=== PATIENT | female | born 1990 | race American Indian/Alaskan Native ===

== ENCOUNTER 2022-01-26 17:11 | Inpatient (IN) | payer MEDICAID ==
[2022-01-26] MEDS ORDERED: SODIUM CHLORIDE 0.9% 1000 ML 1,000 ML IV ONE (22:19)
[2022-01-26] MEDS ORDERED: ONDANSETRON 4 MG/2 ML INJ IV ONE (22:19)
--- NOTE | 2022-01-26 22:42 | Emergency Department Report ---
<JEROME MILES - Last Filed: 01/27/22 07:12> ED Abdominal Pain HPI - General Chief Complaint: Abdominal Pain Stated Complaint: FOOD POISONING, STOMACH CRAMPS Time Seen by Provider: 01/26/22 19:55 Source: patient Mode of arrival: Ambulatory Limitations: No Limitations - History of Present Illness Initial Comments: Patient 31-year-old female who presents with for same symptoms with nausea vomiting diarrhea after eating ribs at cookout 6 days ago. Symptoms include nausea vomiting diarrhea. There is no fevers no chills no shortness of breath. Symptoms are exacerbated by p.o. intake. Symptoms are relieved by no thing tried. Both patients have identical symptoms. - Related Data Previous Rx's Medication Instructions Recorded Last Taken Type Hydrocortisone/Lidocaine/Aloe 1 each RC Q12H #1 kit 10/06/15 Unknown Rx [Lidocaine-Hc 3-2.5% Gel Kit] bisacodyL [Dulcolax] 5 mg PO DAILY PRN #30 tab 10/06/15 Unknown Rx Allergies Allergy/AdvReac Type Severity Reaction Status Date / Time No Known Allergies Allergy Verified 01/27/22 09:39 ED Review of Systems Constitutional: denies: chills, fever Eyes: denies: eye pain, eye discharge, vision change ENT: denies: ear pain, throat pain Respiratory: denies: cough, shortness of breath, wheezing Cardiovascular: denies: chest pain, palpitations Endocrine: no symptoms reported Gastrointestinal: abdominal pain, nausea, vomiting, diarrhea. denies: constipation, melena Genitourinary: denies: urgency, dysuria, discharge Musculoskeletal: denies: back pain, joint swelling, arthralgia Skin: denies: rash, lesions Neurological: denies: headache, weakness, paresthesias, vertigo Psychiatric: denies: anxiety, depression Hematological/Lymphatic: denies: easy bleeding, easy bruising ED Past Medical Hx - Social History Smoking Status: Never Smoker Substance Use Type: None - Medications Home Medications: Home Medications Medication Instructions Recorded Confirmed Last Taken Type Hydrocortisone/Lidocaine/Aloe 1 each RC Q12H #1 kit 10/06/15 Unknown Rx [Lidocaine-Hc 3-2.5% Gel Kit] bisacodyL [Dulcolax] 5 mg PO DAILY PRN #30 tab 10/06/15 Unknown Rx ED Physical Exam - General Limitations: No Limitations General appearance: alert, in no apparent distress - Head Head exam: Present: atraumatic, normocephalic - Eye Eye exam: Present: EOMI Pupils: Present: normal accommodation - ENT ENT exam: Present: normal exam - Neck Neck exam: Present: normal inspection, full ROM. Absent: tenderness, lymphadenopathy - Respiratory Respiratory exam: Present: normal lung sounds bilaterally. Absent: respiratory distress, wheezes - Cardiovascular Cardiovascular Exam: Present: regular rate, normal rhythm, normal heart sounds. Absent: systolic murmur, diastolic murmur, rubs, gallop - GI/Abdominal GI/Abdominal exam: Present: soft, normal bowel sounds. Absent: distended, tenderness, guarding, rebound, rigid, bruit, hernia - Rectal Rectal exam: Present: deferred - Extremities Exam Extremities exam: Present: normal inspection, full ROM, normal capillary refill. Absent: tenderness - Back Exam Back exam: Present: normal inspection, full ROM. Absent: CVA tenderness (R), CVA tenderness (L) - Neurological Exam Neurological exam: Present: alert, oriented X3, CN II-XII intact - Expanded Neurological Exam Expanded Patient oriented to: Present: person, place, time Speech: Present: fluid speech Motor strength exam: RUE: 5, LUE: 5, RLE: 5, LLE: 5 Best Eye Response (Erica): (4) open spontaneously Best Motor Response ([place]): (6) obeys commands Best Verbal Response ([place]): (5) oriented Erica Total: 15 - Psychiatric Psychiatric exam: Present: normal affect, normal mood - Skin Skin exam: Present: warm, dry, intact, normal color. Absent: rash ED Medical Decision Making - Lab Data Result diagrams: 01/26/22 22:55 01/27/22 04:37 - Medical Decision Making Patient care handoff to colleague will follow up and make appropriate disposition after CT scan. ED Disposition Clinical Impression: Acute kidney injury (MICHELE) with acute tubular necrosis (ATN), Acute kidney injury (nontraumatic) Disposition: 02 [facility]ORT TERM [facility]OSPITAL Condition: Stable Instructions: Abdominal Pain (ED) Referrals: JUAN BRANTLEY MD [Primary Care Provider] - 3-5 Days <HUMBERTO BURDICK - Last Filed: 01/27/22 10:23> ED Abdominal Pain HPI - History of Present Illness Initial Comments: 31-year-old female receiving has a complaining nausea and vomiting x6 days after a cookout. Patient states that she has lost 12 pounds total in the last 6 weeks. Patient denies any past medical history. Patient is alert and oriented x3. She has been was treated for the same symptom and discharge. Consulted with Dr. Zarate for admission her MICHELE. Patient has received 3 L of normal saline. BUN and creatinine remain elevated at 89 and 10.1 Abnormal Lab Results 01/26/22 01/26/22 01/27/22 22:55 22:55 01:56 WBC 6.3 RBC 5.37 H Hgb 15.6 H Hct 45.9 H MCV 86 MCH 29 MCHC 34 RDW 14.5 Plt Count 367 Add Manual Diff Complete Total Counted 100 Seg Neuts % (Manual) 60.0 Band Neutrophils % 3.0 Lymphocytes % (Manual) 20.0 Reactive Lymphs % (Man) 0 Monocytes % (Manual) 17.0 H Eosinophils % (Manual) 0 Basophils % (Manual) 0 Metamyelocytes % 0 Myelocytes % 0 Promyelocytes % 0 Blast Cells % 0 Nucleated RBC % Not Reportable Seg Neutrophils # Man 3.8 Band Neutrophils # 0.2 Lymphocytes # (Manual) 1.3 Abs React Lymphs (Man) 0.0 Monocytes # (Manual) 1.1 H Eosinophils # (Manual) 0.0 Basophils # (Manual) 0.0 Metamyelocytes # 0.0 Myelocytes # 0.0 Promyelocytes # 0.0 Blast Cells # 0.0 WBC Morphology Not Reportable Hypersegmented Neuts Not Reportable Hyposegmented Neuts Not Reportable Hypogranular Neuts Not Reportable Smudge Cells Not Reportable Toxic Granulation Not Reportable Toxic Vacuolation Not Reportable Dohle Bodies Not Reportable Pelger-Huet Anomaly Not Reportable Michael Rods Not Reportable Platelet Estimate Consistent w auto Clumped Platelets Not Reportable Plt Clumps, EDTA Not Reportable Large Platelets Not Reportable Giant Platelets Not Reportable Platelet Satelliting Not Reportable Plt Morphology Comment Not Reportable RBC Morphology Normal Dimorphic RBCs Not Reportable Polychromasia Not Reportable Hypochromasia Not Reportable Poikilocytosis Not Reportable Anisocytosis Not Reportable Microcytosis Not Reportable Macrocytosis Not Reportable Spherocytes Not Reportable Pappenheimer Bodies Not Reportable Sickle Cells Not Reportable Target Cells Not Reportable Tear Drop Cells Not Reportable Ovalocytes Not Reportable Helmet Cells Not Reportable [place] Bodies Not Reportable [place] Rings Not Reportable [place] Cells Not Reportable Bite Cells Not Reportable Crenated Cell Not Reportable Elliptocytes Not Reportable Acanthocytes (Spur) Not Reportable Rouleaux Not Reportable Hemoglobin C Crystals Not Reportable Schistocytes Not Reportable Malaria parasites Not Reportable Amando Bodies Not Reportable Hem Pathologist Commnt No Sodium 137 135 L Potassium 4.0 3.7 Chloride 90.6 L 95.4 L Carbon Dioxide 17 L 16 L Anion Gap 33 27 BUN 90 H 89 H Creatinine 11.2 H 10.1 H Estimated GFR 5 5 BUN/Creatinine Ratio 8 9 Glucose 71 72 Calcium 10.0 8.6 Total Bilirubin 0.60 AST 20 ALT 39 Alkaline Phosphatase 147 H Total Creatine Kinase Total Protein 8.7 H Albumin 5.0 Albumin/Globulin Ratio 1.4 HCG, Qual Urine Color Urine Turbidity Specific [place] (Man) Ur Protein (Man) Ur Ketones (Man) Ur Nitrite (Man) Ur Reducing Substances Urine Bilirubin (Man) Urine Ictotest Leukocyte Esterase (Man) Urine WBC (Auto) Urine RBC (Auto) U Epithel Cells (Auto) Urine Bacteria (Auto) Urine RBC (Manual) Urine Yeast (Budding) 01/27/22 01/27/22 01/27/22 04:37 04:37 05:45 WBC RBC Hgb Hct MCV MCH MCHC RDW Plt Count Add Manual Diff Total Counted Seg Neuts % (Manual) Band Neutrophils % Lymphocytes % (Manual) Reactive Lymphs % (Man) Monocytes % (Manual) Eosinophils % (Manual) Basophils % (Manual) Metamyelocytes % Myelocytes % Promyelocytes % Blast Cells % Nucleated RBC % Seg Neutrophils # Man Band Neutrophils # Lymphocytes # (Manual) Abs React Lymphs (Man) Monocytes # (Manual) Eosinophils # (Manual) Basophils # (Manual) Metamyelocytes # Myelocytes # Promyelocytes # Blast Cells # WBC Morphology Hypersegmented Neuts Hyposegmented Neuts Hypogranular Neuts Smudge Cells Toxic Granulation Toxic Vacuolation Dohle Bodies Pelger-Huet Anomaly Michael Rods Platelet Estimate Clumped Platelets Plt Clumps, EDTA Large Platelets Giant Platelets Platelet Satelliting Plt Morphology Comment RBC Morphology Dimorphic RBCs Polychromasia Hypochromasia Poikilocytosis Anisocytosis Microcytosis Macrocytosis Spherocytes Pappenheimer Bodies Sickle Cells Target Cells Tear Drop Cells Ovalocytes Helmet Cells Reeder-[place] Bodies [place] Rings [place] Cells Bite Cells Crenated Cell Elliptocytes Acanthocytes (Spur) Rouleaux Hemoglobin C Crystals Schistocytes Malaria parasites Amando Bodies Hem Pathologist Commnt Sodium 139 Potassium 3.9 Chloride 100.7 Carbon Dioxide 15 L Anion Gap 27 BUN 87 H Creatinine 9.9 H Estimated GFR 5 BUN/Creatinine Ratio 9 Glucose 70 Calcium 8.2 L Total Bilirubin AST ALT Alkaline Phosphatase Total Creatine Kinase 22 L Total Protein Albumin Albumin/Globulin Ratio HCG, Qual Negative Urine Color Urine Turbidity Specific [place] (Man) Ur Protein (Man) Ur Ketones (Man) Ur Nitrite (Man) Ur Reducing Substances Urine Bilirubin (Man) Urine Ictotest Leukocyte Esterase (Man) Urine WBC (Auto) Urine RBC (Auto) U Epithel Cells (Auto) Urine Bacteria (Auto) Urine RBC (Manual) Urine Yeast (Budding) 01/27/22 Unknown WBC RBC Hgb Hct MCV MCH MCHC RDW Plt Count Add Manual Diff Total Counted Seg Neuts % (Manual) Band Neutrophils % Lymphocytes % (Manual) Reactive Lymphs % (Man) Monocytes % (Manual) Eosinophils % (Manual) Basophils % (Manual) Metamyelocytes % Myelocytes % Promyelocytes % Blast Cells % Nucleated RBC % Seg Neutrophils # Man Band Neutrophils # Lymphocytes # (Manual) Abs React Lymphs (Man) Monocytes # (Manual) Eosinophils # (Manual) Basophils # (Manual) Metamyelocytes # Myelocytes # Promyelocytes # Blast Cells # WBC Morphology Hypersegmented Neuts Hyposegmented Neuts Hypogranular Neuts Smudge Cells Toxic Granulation Toxic Vacuolation Dohle Bodies Pelger-Huet Anomaly Michael Rods Platelet Estimate Clumped Platelets Plt Clumps, EDTA Large Platelets Giant Platelets Platelet Satelliting Plt Morphology Comment RBC Morphology Dimorphic RBCs Polychromasia Hypochromasia Poikilocytosis Anisocytosis Microcytosis Macrocytosis Spherocytes Pappenheimer Bodies Sickle Cells Target Cells Tear Drop Cells Ovalocytes Helmet Cells Reeder-[place] Bodies [place] Rings [place] Cells Bite Cells Crenated Cell Elliptocytes Acanthocytes (Spur) Rouleaux Hemoglobin C Crystals Schistocytes Malaria parasites Amando Bodies Hem Pathologist Commnt Sodium Potassium Chloride Carbon Dioxide Anion Gap BUN Creatinine Estimated GFR BUN/Creatinine Ratio Glucose Calcium Total Bilirubin AST ALT Alkaline Phosphatase Total Creatine Kinase Total Protein Albumin Albumin/Globulin Ratio HCG, Qual Urine Color Yellow Urine Turbidity Clear Specific [place] (Man) 1.020 Ur Protein (Man) 1+ Ur Ketones (Man) Negative Ur Nitrite (Man) Negative Ur Reducing Substances Not Reportable Urine Bilirubin (Man) Negative Urine Ictotest Not Reportable Leukocyte Esterase (Man) Negative Urine WBC (Auto) 13.0 H Urine RBC (Auto) 4.0 U Epithel Cells (Auto) 10.0 Urine Bacteria (Auto) 2+ Urine RBC (Manual) 4+ Urine Yeast (Budding) 1+ ED Review of Systems ROS: Stated complaint: FOOD POISONING, STOMACH CRAMPS Other details as noted in HPI ED Course Vital Signs 01/26/22 01/27/22 17:40 07:45 Temperature 98.1 F Pulse Rate 111 H 84 Respiratory 16 Rate Blood Pressure 111/82 111/77 [Right] O2 Sat by Pulse 100 Oximetry ED Medical Decision Making - Lab Data Result diagrams: 01/26/22 22:55 01/27/22 04:37 - Medical Decision Making Consulted with Dr. Zarate to have patient admitted for MICHELE . Patient has elevated BUN and creatinine. Critical care attestation.: If time is entered above; I have spent that time in minutes in the direct care of this critically ill patient, excluding procedure time. ED Disposition Is pt being admited?: Yes
[2022-01-26 23:30] LABS: Hematocrit 45.9 % (30.3-42.9); Hemoglobin 15.6 gm/dl (10.1-14.3); Mean Corpuscular HGB Conc 34 % (30-34); Mean Corpuscular Volume 86 fl (79-97); Platelet Count 367 K/mm3 (140-440); Red Blood Count 5.37 M/mm3 (3.65-5.03); Red Cell Distribution Width 14.5 % (13.2-15.2)
[2022-01-27] MEDS ORDERED: SODIUM CHLORIDE 0.9% 1000 ML 1,000 ML IV ONE ×3 (00:48→07:24)
[2022-01-27 01:06] LABS: Band Neutrophils # (Manual) 0.2 K/mm3; Basophils % (Manual) 0 % (0.0-1.8); Eosinophils % (Manual) 0 % (0.0-4.3); Platelet Estimate Consistent w Auto; RBC Morphology Normal; Total Cells Counted 100
[2022-01-27 02:30] LABS: Calcium 8.6 mg/dL (8.4-10.2)
[2022-01-27 05:27] LABS: Calcium 8.2 mg/dL (8.4-10.2)
[2022-01-27 05:29] LABS: Bacteria,Urine 2+ /HPF (Negative)
[2022-01-27 05:32] LABS: Color,Urine Yellow (Yellow)
[2022-01-27] MEDS ORDERED: MORPHINE 2 MG/1 ML INJ IV PRN (09:36)
[2022-01-27] MEDS ORDERED: SODIUM CHLORIDE 0.9% 1000 ML 1,000 ML IV SCH (10:00)
--- NOTE | 2022-01-27 10:11 | Cat Scan Report ---
CT ABDOMEN AND PELVIS WITHOUT CONTRAST INDICATION / CLINICAL INFORMATION: sana, r/o obsructive stone. TECHNIQUE: Axial CT images were obtained through the abdomen and pelvis without IV contrast. All CT scans at this location are performed using CT dose reduction for ALARA by means of automated exposure control. COMPARISON: None available. FINDINGS: A paucity of intra-abdominal LOWER CHEST: No significant abnormality. LIVER: No significant abnormality. GALLBLADDER: No significant abnormality. BILE DUCTS: No significant abnormality. PANCREAS: No significant abnormality. SPLEEN: No significant abnormality. ADRENALS: No significant abnormality. RIGHT KIDNEY / URETER: No significant abnormality. LEFT KIDNEY / URETER: There is a 2 mm nonobstructing calculus within the inferior pole the left kidne y. STOMACH / SMALL BOWEL: No significant abnormality. COLON: No significant abnormality. APPENDIX: Not visualized. PERITONEUM: No free fluid. No free air. No fluid collection. LYMPH NODES: No significant adenopathy. AORTA / ARTERIES: No significant abnormality. IVC / VEINS: No significant abnormality. URINARY BLADDER: The bladder is mildly distended and thick-walled. Correlation with urinalysis is rec ommended. REPRODUCTIVE ORGANS: There is a circumferentially calcified density within the uterus, likely represe nting a fibroid, measuring up to 2.0 cm. ADDITIONAL FINDINGS: None. SKELETAL SYSTEM: No significant abnormality. IMPRESSION: 1. 2 mm nonobstructing calculus within the inferior pole of the left kidney. 2. No gross hydronephrosis although evaluation is limited by the lack of IV contrast and a paucity of intrarenal fat. Signer Name: Rob Lyle MD Signed: 01/27/2022 10:07 AM Workstation Name: [id number]
--- NOTE | 2022-01-27 10:33 | History and Physical Report ---
History of Present Illness Date of examination: 01/27/22 History of present illness: 31-year-old female with past medical history of hypertension coming to our facility with complaint of acute abdominal pain, nausea, vomiting, diarrhea of 1 week duration. Patient states that her symptom onset was last Saturday when she was at her father's home for a cookout. Patient states that after this cookout she and her had been feeling unwell. Her was hospitalized yesterday and subsequently discharged for similar symptoms. Per the patient, approximately 11 people were sick as a result of suspected food poisoning from this gathering. Patient states that she has been having severe lower abdominal cramping as well as poor appetite since this libertarian. She denies any fevers or chills. She denies any prior history of urinary retention or kidney stones. Remainder of ROS negative except for stated above. Patient is comfortable on my encounter. She denies any current nausea, vomiting or any abdominal pain/cramping. PMHx: Hypertension, with recent delivery PSHx: from recent FHx: Hypertension SHx: Tobacco use-denies ETOH Use-denies Recreational Drug Use- denies Medications and Allergies Allergies Allergy/AdvReac Type Severity Reaction Status Date / Time No Known Allergies Allergy Verified 01/27/22 09:39 Home Medications Medication Instructions Recorded Confirmed Last Taken Type Hydrocortisone/Lidocaine/Aloe 1 each RC Q12H #1 kit 10/06/15 Unknown Rx [Lidocaine-Hc 3-2.5% Gel Kit] bisacodyL [Dulcolax] 5 mg PO DAILY PRN #30 tab 10/06/15 Unknown Rx Active Meds: Active Medications Acetaminophen (Acetaminophen 325 Mg Tab) 650 mg PO Q4H PRN PRN Reason: Pain MILD(1-3)/Fever >100.5/[place] Sodium Chloride (Nacl 0.9% 1000 Ml) 1,000 mls @ 150 mls/hr IV DIRECT LARISSA Morphine Sulfate (Morphine 2 Mg/1 Ml Inj) 2 mg IV Q4H PRN PRN Reason: Pain, Moderate (4-6) Ondansetron HCl (Ondansetron 4 Mg/2 Ml Inj) 4 mg IV Q8H PRN PRN Reason: Nausea And Vomiting Sodium Chloride (Sodium Chloride 0.9% 10 Ml Flush Syringe) 10 ml IV BID LARISSA Sodium Chloride (Sodium Chloride 0.9% 10 Ml Flush Syringe) 10 ml IV PRN PRN PRN Reason: LINE FLUSH Exam - Physical Exam Narrative exam: Physical Exam: VITAL SIGNS: Reviewed. GENERAL: The patient appears normally developed, Vital signs as documented. HEAD: No signs of head trauma. EYES: Pupils are equal. Extraocular motions intact. EARS: Hearing grossly intact. MOUTH: Oropharynx is normal. NECK: No adenopathy, no JVD. CHEST: Chest with clear breath sounds bilaterally. No wheezes, rales, or rhonchi. CARDIAC: Regular rate and rhythm. S1 and S2, without murmurs, gallops, or rubs. VASCULAR: No Edema. Peripheral pulses normal and equal in all extremities. ABDOMEN: Soft, non tender and non distended. No rebound or guarding, and no masses palpated. Bowel Sounds normal. MUSCULOSKELETAL: Good range of motion of all major joints. Extremities without clubbing, cyanosis or edema. NEUROLOGIC EXAM: Alert and oriented x 4. no focal sensory or strength deficits. PSYCHIATRIC: Mood normal. SKIN: detail exam as documented in skin assessment - Constitutional Vitals: Temp Pulse Resp BP Pulse Ox 98.1 F 84 16 111/77 100 01/26/22 17:40 01/27/22 07:45 01/26/22 17:40 01/27/22 07:45 01/26/22 17:40 Results - Labs CBC & Chem 7: 01/26/22 22:55 01/27/22 04:37 Labs: Laboratory Last Values WBC 6.3 K/mm3 (4.5-11.0) 01/26/22 22:55 RBC 5.37 M/mm3 (3.65-5.03) H 01/26/22 22:55 Hgb 15.6 gm/dl (10.1-14.3) H 01/26/22 22:55 Hct 45.9 % (30.3-42.9) H 01/26/22 22:55 MCV 86 fl (79-97) 01/26/22 22:55 MCH 29 pg (28-32) 01/26/22 22:55 MCHC 34 % (30-34) 01/26/22 22:55 RDW 14.5 % (13.2-15.2) 01/26/22 22:55 Plt Count 367 K/mm3 (140-440) 01/26/22 22:55 Add Manual Diff Complete 01/26/22 22:55 Total Counted 100 01/26/22 22:55 Seg Neuts % (Manual) 60.0 % (40.0-70.0) 01/26/22 22:55 Band Neutrophils % 3.0 % 01/26/22 22:55 Lymphocytes % (Manual) 20.0 % (13.4-35.0) 01/26/22 22:55 Reactive Lymphs % (Man) 0 % 01/26/22 22:55 Monocytes % (Manual) 17.0 % (0.0-7.3) H 01/26/22 22:55 Eosinophils % (Manual) 0 % (0.0-4.3) 01/26/22 22:55 Basophils % (Manual) 0 % (0.0-1.8) 01/26/22 22:55 Metamyelocytes % 0 % 01/26/22 22:55 Myelocytes % 0 % 01/26/22 22:55 Promyelocytes % 0 % 01/26/22 22:55 Blast Cells % 0 % 01/26/22 22:55 Nucleated RBC % Not Reportable 01/26/22 22:55 Seg Neutrophils # Man 3.8 K/mm3 (1.8-7.7) 01/26/22 22:55 Band Neutrophils # 0.2 K/mm3 01/26/22 22:55 Lymphocytes # (Manual) 1.3 K/mm3 (1.2-5.4) 01/26/22 22:55 Abs React Lymphs (Man) 0.0 K/mm3 01/26/22 22:55 Monocytes # (Manual) 1.1 K/mm3 (0.0-0.8) H 01/26/22 22:55 Eosinophils # (Manual) 0.0 K/mm3 (0.0-0.4) 01/26/22 22:55 Basophils # (Manual) 0.0 K/mm3 (0.0-0.1) 01/26/22 22:55 Metamyelocytes # 0.0 K/mm3 01/26/22 22:55 Myelocytes # 0.0 K/mm3 01/26/22 22:55 Promyelocytes # 0.0 K/mm3 01/26/22 22:55 Blast Cells # 0.0 K/mm3 01/26/22 22:55 WBC Morphology Not Reportable 01/26/22 22:55 Hypersegmented Neuts Not Reportable 01/26/22 22:55 Hyposegmented Neuts Not Reportable 01/26/22 22:55 Hypogranular Neuts Not Reportable 01/26/22 22:55 Smudge Cells Not Reportable 01/26/22 22:55 Toxic Granulation Not Reportable 01/26/22 22:55 Toxic Vacuolation Not Reportable 01/26/22 22:55 Dohle Bodies Not Reportable 01/26/22 22:55 Pelger-Huet Anomaly Not Reportable 01/26/22 22:55 Michael Rods Not Reportable 01/26/22 22:55 Platelet Estimate Consistent w auto 01/26/22 22:55 Clumped Platelets Not Reportable 01/26/22 22:55 Plt Clumps, EDTA Not Reportable 01/26/22 22:55 Large Platelets Not Reportable 01/26/22 22:55 Giant Platelets Not Reportable 01/26/22 22:55 Platelet Satelliting Not Reportable 01/26/22 22:55 Plt Morphology Comment Not Reportable 01/26/22 22:55 RBC Morphology Normal 01/26/22 22:55 Dimorphic RBCs Not Reportable 01/26/22 22:55 Polychromasia Not Reportable 01/26/22 22:55 Hypochromasia Not Reportable 01/26/22 22:55 Poikilocytosis Not Reportable 01/26/22 22:55 Anisocytosis Not Reportable 01/26/22 22:55 Microcytosis Not Reportable 01/26/22 22:55 Macrocytosis Not Reportable 01/26/22 22:55 Spherocytes Not Reportable 01/26/22 22:55 Pappenheimer Bodies Not Reportable 01/26/22 22:55 Sickle Cells Not Reportable 01/26/22 22:55 Target Cells Not Reportable 01/26/22 22:55 Tear Drop Cells Not Reportable 01/26/22 22:55 Ovalocytes Not Reportable 01/26/22 22:55 Helmet Cells Not Reportable 01/26/22 22:55 [place] Bodies Not Reportable 01/26/22 22:55 [place] Rings Not Reportable 01/26/22 22:55 [place] Cells Not Reportable 01/26/22 22:55 Bite Cells Not Reportable 01/26/22 22:55 Crenated Cell Not Reportable 01/26/22 22:55 Elliptocytes Not Reportable 01/26/22 22:55 Acanthocytes (Spur) Not Reportable 01/26/22 22:55 Rouleaux Not Reportable 01/26/22 22:55 Hemoglobin C Crystals Not Reportable 01/26/22 22:55 Schistocytes Not Reportable 01/26/22 22:55 Malaria parasites Not Reportable 01/26/22 22:55 Amando Bodies Not Reportable 01/26/22 22:55 Hem Pathologist Commnt No 01/26/22 22:55 Sodium 139 mmol/L (137-145) 01/27/22 04:37 Potassium 3.9 mmol/L (3.6-5.0) 01/27/22 04:37 Chloride 100.7 mmol/L (98-107) 01/27/22 04:37 Carbon Dioxide 15 mmol/L (22-30) L 01/27/22 04:37 Anion Gap 27 mmol/L 01/27/22 04:37 BUN 87 mg/dL (7-17) H 01/27/22 04:37 Creatinine 9.9 mg/dL (0.6-1.2) H 01/27/22 04:37 Estimated GFR 5 ml/min 01/27/22 04:37 BUN/Creatinine Ratio 9 % 01/27/22 04:37 Glucose 70 mg/dL (65-100) 01/27/22 04:37 Lactic Acid 0.70 mmol/L (0.7-2.0) 01/27/22 09:23 Calcium 8.2 mg/dL (8.4-10.2) L 01/27/22 04:37 Total Bilirubin 0.60 mg/dL (0.1-1.2) 01/26/22 22:55 AST 20 units/L (5-40) 01/26/22 22:55 ALT 39 units/L (7-56) 01/26/22 22:55 Alkaline Phosphatase 147 units/L (35-129) H 01/26/22 22:55 Total Creatine Kinase 22 units/L (30-135) L 01/27/22 05:45 Total Protein 8.7 g/dL (6.3-8.2) H 01/26/22 22:55 Albumin 5.0 g/dL (3.9-5) 01/26/22 22:55 Albumin/Globulin Ratio 1.4 % 01/26/22 22:55 HCG, Qual Negative (Negative) 01/27/22 04:37 Urine Color Yellow (Yellow) 01/27/22 Unknown Urine Turbidity Clear (Clear) 01/27/22 Unknown Specific [place] (Man) 1.020 (1.003-1.030) 01/27/22 Unknown Ur Protein (Man) 1+ mg/dL (Negative) 01/27/22 Unknown Ur Ketones (Man) Negative (Negative) 01/27/22 Unknown Ur Nitrite (Man) Negative (Negative) 01/27/22 Unknown Ur Reducing Substances Not Reportable 01/27/22 Unknown Urine Bilirubin (Man) Negative (Negative) 01/27/22 Unknown Urine Ictotest Not Reportable 01/27/22 Unknown Leukocyte Esterase (Man) Negative (Negative) 01/27/22 Unknown Urine WBC (Auto) 13.0 /HPF (0.0-6.0) H 01/27/22 Unknown Urine RBC (Auto) 4.0 /HPF (0.0-6.0) 01/27/22 Unknown U Epithel Cells (Auto) 10.0 /HPF (0-13.0) 01/27/22 Unknown Urine Bacteria (Auto) 2+ /HPF (Negative) 01/27/22 Unknown Urine RBC (Manual) 4+ (Negative) 01/27/22 Unknown Urine Yeast (Budding) 1+ /HPF 01/27/22 Unknown Assessment and Plan Assessment and plan: #Acute gastroenteritis - N/V, diarreha, abd cramping - several members of family with comparable illness some requiring ED visits - stool cx and c. diff ordered - Aggressive IVF hydration - zofran prn for nausea. - Will start Flagyl - CLD if patient tolerate #Urinary Tract Infection - slight elevation of urine WBC: 13 - Rocephin IV #Acute kidney injury with vasomotor nephropathy - etiology likely dehydration from gastroenteritis. renal stone ID on ctap is nonobstructing, no hydronephrosis visualized, doubt this is causative factor. - Cr: 11.2 - aggressive IVF resuscitatoin - strict I/O, track urine output. - avoid nephrotoxins - nephrology consultation - trend on serial bmp #Hypertension - normotensive on admission - home meds: labetalol 200 mg po bid and procardia 30 mg po daily - hold home meds for now #Nonobstructing nephrolithiasis - CTAP 2mm obstructive stone, no hydronephrosis noted #Advance care planning Disease education conducted, care plan discussed, diagnoses discussed, prognosis discussed, patient is full code, patient acknowledges understanding and agree with care plan, +30 minutes. CPT 58052 Time Spent: +70 min
--- NOTE | 2022-01-27 12:01 | Consultation ---
History of Present Illness - Reason for Consult Consult date: 01/27/22 acute renal failure, chronic renal failure - History of Present Illness RFC: MICHELE, Acidosis HPI: 31 year old F admitted with abdominal pain, nausea, vomiting, diarrhea of 1 week duration. She denies SHOB, CP, dysuria. She is making some urine. ROS: As in HPI otherwise 12 point review of systems -ve PMHx: Hypertension, with recent delivery PSHx: from recent FHx: Hypertension SHx: Tobacco use-denies ETOH Use-denies Recreational Drug Use- denies Medications and Allergies Allergies Allergy/AdvReac Type Severity Reaction Status Date / Time No Known Allergies Allergy Verified 01/27/22 09:39 Home Medications Medication Instructions Recorded Confirmed Last Taken Type Hydrocortisone/Lidocaine/Aloe 1 each RC Q12H #1 kit 10/06/15 Unknown Rx [Lidocaine-Hc 3-2.5% Gel Kit] bisacodyL [Dulcolax] 5 mg PO DAILY PRN #30 tab 10/06/15 Unknown Rx Active Meds: Active Medications Acetaminophen (Acetaminophen 325 Mg Tab) 650 mg PO Q4H PRN PRN Reason: Pain MILD(1-3)/Fever >100.5/WILKERSON Sodium Chloride (Nacl 0.9% 1000 Ml) 1,000 mls @ 150 mls/hr IV DIRECT LARISSA Ceftriaxone Sodium (Rocephin/Ns 1 Gm/50 Ml) 1 gm in 50 mls @ 100 mls/hr IV Q24H LARISSA; Protocol Sodium Bicarbonate 150 meq/ (Dextrose) 1,150 mls @ 125 mls/hr IV DIRECT LARISSA Metronidazole (Metronidazole 500 Mg Tab) 500 mg PO Q8HR LARISSA; Protocol Ondansetron HCl (Ondansetron 4 Mg/2 Ml Inj) 4 mg IV Q8H PRN PRN Reason: Nausea And Vomiting Sodium Chloride (Sodium Chloride 0.9% 10 Ml Flush Syringe) 10 ml IV BID LARISSA Last Admin: 01/27/22 11:01 Dose: 10 ml Sodium Chloride (Sodium Chloride 0.9% 10 Ml Flush Syringe) 10 ml IV PRN PRN PRN Reason: LINE FLUSH Exam - Vital Signs Vital signs: Vital Signs Temp Pulse Resp BP Pulse Ox 98.1 F 111 H 16 111/82 100 01/26/22 17:40 01/26/22 17:40 01/26/22 17:40 01/26/22 17:40 01/26/22 17:40 - Physical Exam Narrative exam: Physical Exam: VITAL SIGNS: Reviewed. GENERAL: The patient appears normally developed, Vital signs as documented. HEAD: No signs of head trauma. EYES: Pupils are equal. Extraocular motions intact. EARS: Hearing grossly intact. MOUTH: Oropharynx is normal. NECK: No adenopathy, no JVD. CHEST: Chest with clear breath sounds bilaterally. No wheezes, rales, or rhonchi. CARDIAC: Regular rate and rhythm. S1 and S2, without murmurs, gallops, or rubs. VASCULAR: No Edema. Peripheral pulses normal and equal in all extremities. ABDOMEN: Soft, non tender and non distended. No rebound or guarding, and no masses palpated. Bowel Sounds normal. MUSCULOSKELETAL: Good range of motion of all major joints. Extremities without clubbing, cyanosis or edema. NEUROLOGIC EXAM: Alert and oriented x 4. no focal sensory or strength deficits. PSYCHIATRIC: Mood normal. 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
--- NOTE | 2022-01-27 15:40 | XRay Report ---
CHEST 1 VIEW 01/27/2022 2:33 PM INDICATION / CLINICAL INFORMATION: congestion. COMPARISON: None available. FINDINGS: SUPPORT DEVICES: None. HEART / MEDIASTINUM: No significant abnormality. LUNGS / PLEURA: No significant pulmonary or pleural abnormality. No pneumothorax. ADDITIONAL FINDINGS: No significant additional findings. IMPRESSION: 1. No acute findings. Signer Name: Basim Ferrer MD Signed: 01/27/2022 3:36 PM Workstation Name: [id number]
[2022-01-27] MEDS: SODIUM BICARBONATE 150 MEQ in DEXTROSE 5% IN WATER 1,000 ML IV SCH (16:40)
[2022-01-27] MEDS: metroNIDAZOLE 500 MG TAB PO SCH ×2 (16:44→23:08)
[2022-01-27] MEDS: cefTRIAXone/NS 1 GM/50 ML 1 GM/50 ML BAG IV SCH (16:45)
[2022-01-27 18:26] LABS: Creatinine,Urine 134.5 mg/dL (0.1-20.0); Protein/Creatinine Ratio,Urine 0.2
[2022-01-28] MEDS: SODIUM BICARBONATE 150 MEQ in DEXTROSE 5% IN WATER 1,000 ML IV SCH ×2 (03:37→14:24)
[2022-01-28 07:00] LABS: Hematocrit 30.7 % (30.3-42.9); Hemoglobin 10.6 gm/dl (10.1-14.3); Mean Corpuscular HGB Conc 35 % (30-34); Mean Corpuscular Volume 83 fl (79-97); Platelet Count 295 K/mm3 (140-440); Red Blood Count 3.69 M/mm3 (3.65-5.03); Red Cell Distribution Width 13.8 % (13.2-15.2)
[2022-01-28 07:20] LABS: Albumin 3.3 g/dL (3.9-5)
[2022-01-28 08:52] LABS: Basophils % (Manual) 0 % (0.0-1.8); Myelocytes # (Manual) 0.1 K/mm3; Platelet Estimate Consistent w Auto; RBC Morphology Normal; Total Cells Counted 100
--- NOTE | 2022-01-28 09:01 | Progress Note ---
Assessment and Plan Assessment and plan: HPI: 31-year-old female with past medical history of hypertension coming to our facility with complaint of acute abdominal pain, nausea, vomiting, diarrhea of 1 week duration. Patient states that her symptom onset was last Saturday when she was at her father's home for a cookout. Patient states that after this cookout she and her had been feeling unwell. Her was hospitalized yesterday and subsequently discharged for similar symptoms. Per the patient, approximately 11 people were sick as a result of suspected food poisoning from this gathering. Patient states that she has been having severe lower abdominal cramping as well as poor appetite since this constitution party. She denies any fevers or chills. She denies any prior history of urinary retention or kidney stones. Remainder of ROS negative except for stated above. Hospital Course: Hospital Course: 01/28: Mild improvement in renal function. Nephrology fluid orders noted, continue D5-bicarb IV. Low potassium, replaced with IV and oral K. Good urine output per history and I/O review. Continue strict monitoring of I/O. Assessment and Plan #Acute gastroenteritis - N/V, diarreha, abd cramping - several members of family with comparable illness some requiring ED visits - stool cx and c. diff ordered - Aggressive IVF hydration - zofran prn for nausea. - Will start Flagyl - CLD if patient tolerate #Urinary Tract Infection - slight elevation of urine WBC: 13 - urine culture - Rocephin IV #Acute kidney injury with vasomotor nephropathy #Hypokalemia - etiology likely dehydration from gastroenteritis. renal stone ID on ctap is nonobstructing, no hydronephrosis visualized, doubt this is causative factor. - Cr: 11.2 - aggressive IVF resuscitatoin - strict I/O, track urine output. - avoid nephrotoxins - electrolyte replacement prn - nephrology consultation - trend on serial bmp #Hypertension - normotensive on admission - home meds: labetalol 200 mg po bid and procardia 30 mg po daily - hold home meds for now #Nonobstructing nephrolithiasis - CTAP 2mm obstructive stone, no hydronephrosis noted #Advance care planning Disease education conducted, care plan discussed, diagnoses discussed, prognosis discussed, patient is full code, patient acknowledges understanding and agree with care plan, +30 minutes. Time spent: +35 min CPT 28067 History Interval history: No acute complaints on encounter. Resting comfortably. States she is using restroom regularly and continues to have robust urine output. Hospitalist Physical - Physical exam Narrative exam: Physical Exam: VITAL SIGNS: Reviewed. GENERAL: The patient appears normally developed, Vital signs as documented. HEAD: No signs of head trauma. EYES: Pupils are equal. Extraocular motions intact. EARS: Hearing grossly intact. MOUTH: Oropharynx is normal. NECK: No adenopathy, no JVD. CHEST: Chest with clear breath sounds bilaterally. No wheezes, rales, or rhon chi. CARDIAC: Regular rate and rhythm. S1 and S2, without murmurs, gallops, or rubs. VASCULAR: No Edema. Peripheral pulses normal and equal in all extremities. ABDOMEN: Soft, non tender and non distended. No rebound or guarding, and no masses palpated. Bowel Sounds normal. MUSCULOSKELETAL: Good range of motion of all major joints. Extremities without clubbing, cyanosis or edema. NEUROLOGIC EXAM: Alert and oriented x 4. no focal sensory or strength deficits. PSYCHIATRIC: Mood normal. SKIN: detail exam as documented in skin assessment - Constitutional Vitals: Temp Pulse Resp BP Pulse Ox 98.3 F 78 17 128/80 99 01/28/22 03:43 01/28/22 03:43 01/28/22 03:43 01/28/22 03:43 01/28/22 03:43 Results - Labs CBC & Chem 7: 01/28/22 05:51 01/28/22 05:51 Labs: Laboratory Last Values WBC 4.5 K/mm3 (4.5-11.0) 01/28/22 05:51 RBC 3.69 M/mm3 (3.65-5.03) 01/28/22 05:51 Hgb 10.6 gm/dl (10.1-14.3) D 01/28/22 05:51 Hct 30.7 % (30.3-42.9) D 01/28/22 05:51 MCV 83 fl (79-97) 01/28/22 05:51 MCH 29 pg (28-32) 01/28/22 05:51 MCHC 35 % (30-34) H 01/28/22 05:51 RDW 13.8 % (13.2-15.2) 01/28/22 05:51 Plt Count 295 K/mm3 (140-440) 01/28/22 05:51 [place] % (Auto) Substation Supervisor 01/28/22 05:51 Add Manual Diff Complete 01/28/22 05:51 Total Counted 100 01/28/22 05:51 Seg Neuts % (Manual) 72.0 % (40.0-70.0) H 01/28/22 05:51 Band Neutrophils % 1.0 % 01/28/22 05:51 Lymphocytes % (Manual) 12.0 % (13.4-35.0) L 01/28/22 05:51 Reactive Lymphs % (Man) 0 % 01/28/22 05:51 Monocytes % (Manual) 10.0 % (0.0-7.3) H 01/28/22 05:51 Eosinophils % (Manual) 2.0 % (0.0-4.3) 01/28/22 05:51 Basophils % (Manual) 0 % (0.0-1.8) 01/28/22 05:51 Metamyelocytes % 1.0 % 01/28/22 05:51 Myelocytes % 2.0 % 01/28/22 05:51 Promyelocytes % 0 % 01/28/22 05:51 Blast Cells % 0 % 01/28/22 05:51 Nucleated RBC % Not Reportable 01/28/22 05:51 Seg Neutrophils # Man 3.2 K/mm3 (1.8-7.7) 01/28/22 05:51 Band Neutrophils # 0.0 K/mm3 01/28/22 05:51 Lymphocytes # (Manual) 0.5 K/mm3 (1.2-5.4) L 01/28/22 05:51 Abs React Lymphs (Man) 0.0 K/mm3 01/28/22 05:51 Monocytes # (Manual) 0.5 K/mm3 (0.0-0.8) 01/28/22 05:51 Eosinophils # (Manual) 0.1 K/mm3 (0.0-0.4) 01/28/22 05:51 Basophils # (Manual) 0.0 K/mm3 (0.0-0.1) 01/28/22 05:51 Metamyelocytes # 0.0 K/mm3 01/28/22 05:51 Myelocytes # 0.1 K/mm3 01/28/22 05:51 Promyelocytes # 0.0 K/mm3 01/28/22 05:51 Blast Cells # 0.0 K/mm3 01/28/22 05:51 WBC Morphology Not Reportable 01/28/22 05:51 Hypersegmented Neuts Not Reportable 01/28/22 05:51 Hyposegmented Neuts Not Reportable 01/28/22 05:51 Hypogranular Neuts Not Reportable 01/28/22 05:51 Smudge Cells Not Reportable 01/28/22 05:51 Toxic Granulation Not Reportable 01/28/22 05:51 Toxic Vacuolation Not Reportable 01/28/22 05:51 Dohle Bodies Not Reportable 01/28/22 05:51 Pelger-Huet Anomaly Not Reportable 01/28/22 05:51 Michael Rods Not Reportable 01/28/22 05:51 Platelet Estimate Consistent w auto 01/28/22 05:51 Clumped Platelets Not Reportable 01/28/22 05:51 Plt Clumps, EDTA Not Reportable 01/28/22 05:51 Large Platelets Not Reportable 01/28/22 05:51 Giant Platelets Not Reportable 01/28/22 05:51 Platelet Satelliting Not Reportable 01/28/22 05:51 Plt Morphology Comment Not Reportable 01/28/22 05:51 RBC Morphology Normal 01/28/22 05:51 Dimorphic RBCs Not Reportable 01/28/22 05:51 Polychromasia Not Reportable 01/28/22 05:51 Hypochromasia Not Reportable 01/28/22 05:51 Poikilocytosis Not Reportable 01/28/22 05:51 Anisocytosis Not Reportable 01/28/22 05:51 Microcytosis Not Reportable 01/28/22 05:51 Macrocytosis Not Reportable 01/28/22 05:51 Spherocytes Not Reportable 01/28/22 05:51 Pappenheimer Bodies Not Reportable 01/28/22 05:51 Sickle Cells Not Reportable 01/28/22 05:51 Target Cells Not Reportable 01/28/22 05:51 Tear Drop Cells Not Reportable 01/28/22 05:51 Ovalocytes Not Reportable 01/28/22 05:51 Helmet Cells Not Reportable 01/28/22 05:51 [place] Bodies Not Reportable 01/28/22 05:51 [place]on Rings Not Reportable 01/28/22 05:51 Graham Cells Not Reportable 01/28/22 05:51 Bite Cells Not Reportable 01/28/22 05:51 Crenated Cell Not Reportable 01/28/22 05:51 Elliptocytes Not Reportable 01/28/22 05:51 Acanthocytes (Spur) Not Reportable 01/28/22 05:51 Rouleaux Not Reportable 01/28/22 05:51 Hemoglobin C Crystals Not Reportable 01/28/22 05:51 Schistocytes Not Reportable 01/28/22 05:51 Malaria parasites Not Reportable 01/28/22 05:51 Amando Bodies Not Reportable 01/28/22 05:51 Hem Pathologist Commnt No 01/28/22 05:51 Sodium 135 mmol/L (137-145) L 01/28/22 05:51 Potassium 2.8 mmol/L (3.6-5.0) L* D 01/28/22 05:51 Chloride 95.7 mmol/L (98-107) L 01/28/22 05:51 Carbon Dioxide 20 mmol/L (22-30) L 01/28/22 05:51 Anion Gap 22 mmol/L 01/28/22 05:51 BUN 87 mg/dL (7-17) H 01/28/22 05:51 Creatinine 8.3 mg/dL (0.6-1.2) H 01/28/22 05:51 Estimated GFR 7 ml/min 01/28/22 05:51 BUN/Creatinine Ratio 10 % 01/28/22 05:51 Glucose 112 mg/dL (65-100) H 01/28/22 05:51 Lactic Acid 0.70 mmol/L (0.7-2.0) 01/27/22 09:23 Calcium 8.0 mg/dL (8.4-10.2) L 01/28/22 05:51 Total Bilirubin 0.60 mg/dL (0.1-1.2) 01/28/22 05:51 AST 11 units/L (5-40) 01/28/22 05:51 ALT 17 units/L (7-56) 01/28/22 05:51 Alkaline Phosphatase 80 units/L (35-129) 01/28/22 05:51 Total Creatine Kinase 22 units/L (30-135) L 01/27/22 05:45 Total Protein 5.3 g/dL (6.3-8.2) L D 01/28/22 05:51 Albumin 3.3 g/dL (3.9-5) L 01/28/22 05:51 Albumin/Globulin Ratio 1.7 % 01/28/22 05:51 HCG, Qual Negative (Negative) 01/27/22 04:37 Urine Color Yellow (Yellow) 01/27/22 Unknown Urine Turbidity Clear (Clear) 01/27/22 Unknown Specific [place] (Man) 1.020 (1.003-1.030) 01/27/22 Unknown Ur Protein (Man) 1+ mg/dL (Negative) 01/27/22 Unknown Ur Ketones (Man) Negative (Negative) 01/27/22 Unknown Ur Nitrite (Man) Negative (Negative) 01/27/22 Unknown Ur Reducing Substances Not Reportable 01/27/22 Unknown Urine Bilirubin (Man) Negative (Negative) 01/27/22 Unknown Urine Ictotest Not Reportable 01/27/22 Unknown Leukocyte Esterase (Man) Negative (Negative) 01/27/22 Unknown Urine WBC (Auto) 13.0 /HPF (0.0-6.0) H 01/27/22 Unknown Urine RBC (Auto) 4.0 /HPF (0.0-6.0) 01/27/22 Unknown U Epithel Cells (Auto) 10.0 /HPF (0-13.0) 01/27/22 Unknown Urine Bacteria (Auto) 2+ /HPF (Negative) 01/27/22 Unknown Urine RBC (Manual) 4+ (Negative) 01/27/22 Unknown Urine Yeast (Budding) 1+ /HPF 01/27/22 Unknown Urine Eosinophils Rare eosinophil seen (None Seen) 01/27/22 17:45 Urine Creatinine 134.5 mg/dL (0.1-20.0) H 01/27/22 17:45 Protein/Creatinin Ratio 0.20 01/27/22 17:45 Urine Sodium 53 mmol/L 01/27/22 17:45 Urine Total Protein 27 mg/dL (5-11.8) H 01/27/22 17:45 Loving/IV: Voiding Method Toilet Active Medications - Current Medications Current Medications: Generic Name Dose Route Start Last Admin Trade Name Freq PRN Reason Stop Dose Admin Acetaminophen 650 mg 01/27/22 09:36 Acetaminophen 325 Mg Tab PO Q4H PRN Pain MILD(1-3)/Fever >100.5/WILKERSON Sodium Chloride 1,000 mls @ 150 mls/hr 01/27/22 10:00 Nacl 0.9% 1000 Ml IV DIRECT LARISSA Ceftriaxone Sodium 1 gm in 50 mls @ 100 mls/hr 01/27/22 12:00 01/27/22 16:45 Rocephin/Ns 1 Gm/50 Ml IV 100 mls/hr Q24H LARISSA Administration Protocol Sodium Bicarbonate 150 meq/ 1,150 mls @ 125 mls/hr 01/27/22 12:00 01/28/22 03:37 Dextrose IV 125 mls/hr DIRECT LARISSA Administration Metronidazole 500 mg 01/27/22 14:00 01/27/22 23:08 Metronidazole 500 Mg Tab PO 500 mg Q8HR LARISSA Administration Protocol Ondansetron HCl 4 mg 01/27/22 09:36 Ondansetron 4 Mg/2 Ml Inj IV Q8H PRN Nausea And Vomiting Sodium Chloride 10 ml 01/27/22 10:00 01/27/22 23:09 Sodium Chloride 0.9% 10 Ml Flush Syringe IV 10 ml BID LARISSA Administration Sodium Chloride 10 ml 01/27/22 09:36 Sodium Chloride 0.9% 10 Ml Flush Syringe IV PRN PRN LINE FLUSH
[2022-01-28] MEDS: metroNIDAZOLE 500 MG TAB PO SCH ×3 (09:10→21:49)
[2022-01-28] MEDS ORDERED: POTASSIUM CHLORIDE ER 20 MEQ TAB PO ONE (10:00)
[2022-01-28] MEDS: POTASSIUM CHLORIDE 10 MEQ 10 MEQ/100 ML BAG IV SCH ×3 (10:19→14:25)
[2022-01-28 11:47] LABS: Hemoglobin 10.9 gm/dl (10.1-14.3)
--- NOTE | 2022-01-28 12:45 | Progress Note ---
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 NAD. Objective - Exam Narrative Exam: Physical Exam: VITAL SIGNS: Reviewed. GENERAL: The patient appears normally developed, Vital signs as documented. HEAD: No signs of head trauma. EYES: Pupils are equal. Extraocular motions intact. EARS: Hearing grossly intact. MOUTH: Oropharynx is normal. NECK: No adenopathy, no JVD. CHEST: Chest with clear breath sounds bilaterally. No wheezes, rales, or rhonchi. CARDIAC: Regular rate and rhythm. S1 and S2, without murmurs, gallops, or rubs. VASCULAR: No Edema. Peripheral pulses normal and equal in all extremities. ABDOMEN: Soft, non tender and non distended. No rebound or guarding, and no masses palpated. Bowel Sounds normal. MUSCULOSKELETAL: Good range of motion of all major joints. Extremities without clubbing, cyanosis or edema. NEUROLOGIC EXAM: Alert and oriented x 4. no focal sensory or strength deficits. PSYCHIATRIC: Mood normal. SKIN: detail exam as documented in skin assessment - Vital Signs Vital signs: Vital Signs - 12hr 01/28/22 01/28/22 01/28/22 02:00 03:43 10:07 Temperature 98.3 F Pulse Rate 78 Respiratory 17 17 Rate Blood Pressure 128/80 [Right] O2 Sat by Pulse 99 99 98 Oximetry - Lab 01/28/22 10:56 01/28/22 05:51 Most recent lab results Calcium 8.0 mg/dL (8.4-10.2) L 01/28/22 05:51 Urine Creatinine 134.5 mg/dL (0.1-20.0) H 01/27/22 17:45 Urine Sodium 53 mmol/L 01/27/22 17:45 Urine Total Protein 27 mg/dL (5-11.8) H 01/27/22 17:45 Medications & Allergies - Medications Allergies/Adverse Reactions: Allergies No Known Allergies Allergy (Verified 01/27/22 09:39) Home Medications: Home Medications Medication Instructions Recorded Confirmed Last Taken Type Hydrocortisone/Lidocaine/Aloe 1 each RC Q12H #1 kit 10/06/15 01/28/22 Unknown Rx [Lidocaine-Hc 3-2.5% Gel Kit] bisacodyL [Dulcolax] 5 mg PO DAILY PRN #30 tab 10/06/15 01/28/22 Unknown Rx Ibuprofen [Motrin] 600 mg PO Q6H PRN 01/28/22 01/28/22 Unknown History Labetalol HCl [Labetalol 300mg TAB] 300 mg PO Q8H 01/28/22 01/28/22 Unknown History NIFEdipine [Nifedipine ER] 30 mg PO DAILY 01/28/22 01/28/22 Unknown History Multivitamin Tablet 1 tab PO DAILY 01/28/22 01/28/22 Unknown History Active Medications: Generic Name Dose Route Start Last Admin Trade Name Freq PRN Reason Stop Dose Admin Acetaminophen 650 mg 01/27/22 09:36 Acetaminophen 325 Mg Tab PO Q4H PRN Pain MILD(1-3)/Fever >100.5/WILKERSON Ceftriaxone Sodium 1 gm in 50 mls @ 100 mls/hr 01/27/22 12:00 01/27/22 16:45 Rocephin/Ns 1 Gm/50 Ml IV 100 mls/hr Q24H LARISSA Administration Protocol Sodium Bicarbonate 150 meq/ 1,150 mls @ 125 mls/hr 01/27/22 12:00 01/28/22 03:37 Dextrose IV 125 mls/hr DIRECT LARISSA Administration Potassium Chloride 10 meq in 100 mls @ 100 mls/hr 01/28/22 10:00 01/28/22 10:19 Kcl 10meq/100ml IV 01/28/22 13:59 100 mls/hr Q1H LARISSA Administration Metronidazole 500 mg 01/27/22 14:00 01/28/22 09:10 Metronidazole 500 Mg Tab PO 500 mg Q8HR LARISSA Administration Protocol Ondansetron HCl 4 mg 01/27/22 09:36 Ondansetron 4 Mg/2 Ml Inj IV Q8H PRN Nausea And Vomiting Sodium Chloride 10 ml 01/27/22 10:00 01/28/22 10:19 Sodium Chloride 0.9% 10 Ml Flush Syringe IV 10 ml BID LARISSA Administration Sodium Chloride 10 ml 09/10/22 09:36 Sodium Chloride 0.9% 10 Ml Flush Syringe IV PRN PRN LINE FLUSH
[2022-01-28] MEDS: cefTRIAXone/NS 1 GM/50 ML 1 GM/50 ML BAG IV SCH (14:24)
[2022-01-28] MEDS: ACETAMINOPHEN 325 MG TAB PO PRN (18:48)
[2022-01-29] MEDS: SODIUM BICARBONATE 150 MEQ in DEXTROSE 5% IN WATER 1,000 ML IV SCH (01:17)
[2022-01-29] MEDS: metroNIDAZOLE 500 MG TAB PO SCH ×3 (05:06→21:12)
[2022-01-29 07:06] LABS: Hematocrit 29.7 % (30.3-42.9); Hemoglobin 10.4 gm/dl (10.1-14.3); Mean Corpuscular HGB Conc 35 % (30-34); Mean Corpuscular Volume 84 fl (79-97); Platelet Count 299 K/mm3 (140-440); Red Blood Count 3.53 M/mm3 (3.65-5.03); Red Cell Distribution Width 13.5 % (13.2-15.2)
[2022-01-29 07:24] LABS: Calcium 8.1 mg/dL (8.4-10.2)
[2022-01-29] MEDS: ONDANSETRON 4 MG/2 ML INJ IV PRN (08:05)
--- NOTE | 2022-01-29 10:14 | Progress Note ---
Assessment and Plan Assessment and plan: HPI: 31-year-old female with past medical history of hypertension coming to our facility with complaint of acute abdominal pain, nausea, vomiting, diarrhea of 1 week duration. Patient states that her symptom onset was last Saturday when she was at her father's home for a cookout. Patient states that after this cookout she and her had been feeling unwell. Her was hospitalized yesterday and subsequently discharged for similar symptoms. Per the patient, approximately 11 people were sick as a result of suspected food poisoning from this gathering. Patient states that she has been having severe lower abdominal cramping as well as poor appetite since this libertarian. She denies any fevers or chills. She denies any prior history of urinary retention or kidney stones. Remainder of ROS negative except for stated above. Hospital Course: Hospital Course: 01/28: Mild improvement in renal function. Nephrology fluid orders noted, continue D5-bicarb IV. Low potassium, replaced with IV and oral K. Good urine output per history and I/O review. Continue strict monitoring of I/O. 01/29: Renal fx continues to improve. Cr: 4.4. Potassium remains low, will continue to replace. Discussion with Dr. Castro, will continue to monitor. D/c rocephin, denies fevers, chills, urinary symptoms. continue flagyl for total of 7 day therapy for gastroenteritis Assessment and Plan #Acute gastroenteritis - N/V, diarreha, abd cramping - several members of family with comparable illness some requiring ED visits - stool cx and c. diff ordered - Aggressive IVF hydration - zofran prn for nausea. - Flagyl x 7 days - CLD if patient tolerate #Urinary Tract Infection (resolved) - slight elevation of urine WBC: 13 - urine culture - Rocephin IV discontinued #Acute kidney injury with vasomotor nephropathy #Hypokalemia - etiology likely dehydration from gastroenteritis. renal stone ID on ctap is nonobstructing, no hydronephrosis visualized, doubt this is causative factor. - Cr: 11.2 - aggressive IVF resuscitatoin - strict I/O, track urine output. - avoid nephrotoxins - electrolyte replacement prn - nephrology consultation - trend on serial bmp #Hypertension - normotensive on admission - home meds: labetalol 200 mg po bid and procardia 30 mg po daily - hold home meds for now #Nonobstructing nephrolithiasis - CTAP 2mm obstructive stone, no hydronephrosis noted #Advance care planning Disease education conducted, care plan discussed, diagnoses discussed, prognosis discussed, patient is full code, patient acknowledges understanding and agree with care plan, +30 minutes. Time spent: +35 min CPT 63780 History Interval history: No acute complaints on AM bedside encounter. Hospitalist Physical - Physical exam Narrative exam: Physical Exam: VITAL SIGNS: Reviewed. GENERAL: The patient appears normally developed, Vital signs as documented. HEAD: No signs of head trauma. EYES: Pupils are equal. Extraocular motions intact. EARS: Hearing grossly intact. MOUTH: Oropharynx is normal. NECK: No adenopathy, no JVD. CHEST: Chest with clear breath sounds bilaterally. No wheezes, rales, or rhonchi. CARDIAC: Regular rate and rhythm. S1 and S2, without murmurs, gallops, or rubs. VASCULAR: No Edema. Peripheral pulses normal and equal in all extremities. ABDOMEN: Soft, non tender and non distended. No rebound or guarding, and no masses palpated. Bowel Sounds normal. MUSCULOSKELETAL: Good range of motion of all major joints. Extremities without clubbing, cyanosis or edema. NEUROLOGIC EXAM: Alert and oriented x 4. no focal sensory or strength deficits. PSYCHIATRIC: Mood normal. SKIN: detail exam as documented in skin assessment - Constitutional Vitals: Temp Pulse Resp BP Pulse Ox 98.8 F 62 16 127/86 99 01/29/22 03:58 01/29/22 03:58 01/29/22 03:58 01/29/22 03:58 01/29/22 03:58 Results - Labs CBC & Chem 7: 01/29/22 05:22 01/29/22 05:22 Labs: Laboratory Last Values WBC 3.9 K/mm3 (4.5-11.0) L 01/29/22 05:22 RBC 3.53 M/mm3 (3.65-5.03) L 01/29/22 05:22 Hgb 10.4 gm/dl (10.1-14.3) 01/29/22 05:22 Hct 29.7 % (30.3-42.9) L 01/29/22 05:22 MCV 84 fl (79-97) 01/29/22 05:22 MCH 30 pg (28-32) 01/29/22 05:22 MCHC 35 % (30-34) H 01/29/22 05:22 RDW 13.5 % (13.2-15.2) 01/29/22 05:22 Plt Count 299 K/mm3 (140-440) 01/29/22 05:22 [place] % (Auto) Forepart Rasper 01/29/22 05:22 Add Manual Diff Complete 01/28/22 05:51 Total Counted 100 01/28/22 05:51 Seg Neuts % (Manual) 72.0 % (40.0-70.0) H 01/28/22 05:51 Band Neutrophils % 1.0 % 01/28/22 05:51 Lymphocytes % (Manual) 12.0 % (13.4-35.0) L 01/28/22 05:51 Reactive Lymphs % (Man) 0 % 01/28/22 05:51 Monocytes % (Manual) 10.0 % (0.0-7.3) H 01/28/22 05:51 Eosinophils % (Manual) 2.0 % (0.0-4.3) 01/28/22 05:51 Basophils % (Manual) 0 % (0.0-1.8) 01/28/22 05:51 Metamyelocytes % 1.0 % 01/28/22 05:51 Myelocytes % 2.0 % 01/28/22 05:51 Promyelocytes % 0 % 01/28/22 05:51 Blast Cells % 0 % 01/28/22 05:51 Nucleated RBC % Not Reportable 01/28/22 05:51 Seg Neutrophils # Man 3.2 K/mm3 (1.8-7.7) 01/28/22 05:51 Band Neutrophils # 0.0 K/mm3 01/28/22 05:51 Lymphocytes # (Manual) 0.5 K/mm3 (1.2-5.4) L 01/28/22 05:51 Abs React Lymphs (Man) 0.0 K/mm3 01/28/22 05:51 Monocytes # (Manual) 0.5 K/mm3 (0.0-0.8) 01/28/22 05:51 Eosinophils # (Manual) 0.1 K/mm3 (0.0-0.4) 01/28/22 05:51 Basophils # (Manual) 0.0 K/mm3 (0.0-0.1) 01/28/22 05:51 Metamyelocytes # 0.0 K/mm3 01/28/22 05:51 Myelocytes # 0.1 K/mm3 01/28/22 05:51 Promyelocytes # 0.0 K/mm3 01/28/22 05:51 Blast Cells # 0.0 K/mm3 01/28/22 05:51 WBC Morphology Not Reportable 01/28/22 05:51 Hypersegmented Neuts Not Reportable 01/28/22 05:51 Hyposegmented Neuts Not Reportable 01/28/22 05:51 Hypogranular Neuts Not Reportable 01/28/22 05:51 Smudge Cells Not Reportable 01/28/22 05:51 Toxic Granulation Not Reportable 01/28/22 05:51 Toxic Vacuolation Not Reportable 01/28/22 05:51 Dohle Bodies Not Reportable 01/28/22 05:51 Pelger-Huet Anomaly Not Reportable 01/28/22 05:51 Michael Rods Not Reportable 01/28/22 05:51 Platelet Estimate Consistent w auto 01/28/22 05:51 Clumped Platelets Not Reportable 01/28/22 05:51 Plt Clumps, EDTA Not Reportable 01/28/22 05:51 Large Platelets Not Reportable 01/28/22 05:51 Giant Platelets Not Reportable 01/28/22 05:51 Platelet Satelliting Not Reportable 01/28/22 05:51 Plt Morphology Comment Not Reportable 01/28/22 05:51 RBC Morphology Normal 01/28/22 05:51 Dimorphic RBCs Not Reportable 01/28/22 05:51 Polychromasia Not Reportable 01/28/22 05:51 Hypochromasia Not Reportable 01/28/22 05:51 Poikilocytosis Not Reportable 01/28/22 05:51 Anisocytosis Not Reportable 01/28/22 05:51 Microcytosis Not Reportable 01/28/22 05:51 Macrocytosis Not Reportable 01/28/22 05:51 Spherocytes Not Reportable 01/28/22 05:51 Pappenheimer Bodies Not Reportable 01/28/22 05:51 Sickle Cells Not Reportable 01/28/22 05:51 Target Cells Not Reportable 01/28/22 05:51 Tear Drop Cells Not Reportable 01/28/22 05:51 Ovalocytes Not Reportable 01/28/22 05:51 Helmet Cells Not Reportable 01/28/22 05:51 Reeder-Gideon Bodies Not Reportable 01/28/22 05:51 Mercer Rings Not Reportable 01/28/22 05:51 Surry Cells Not Reportable 01/28/22 05:51 Bite Cells Not Reportable 01/28/22 05:51 Crenated Cell Not Reportable 01/28/22 05:51 Elliptocytes Not Reportable 01/28/22 05:51 Acanthocytes (Spur) Not Reportable 01/28/22 05:51 Rouleaux Not Reportable 01/28/22 05:51 Hemoglobin C Crystals Not Reportable 01/28/22 05:51 Schistocytes Not Reportable 01/28/22 05:51 Malaria parasites Not Reportable 01/28/22 05:51 Amando Bodies Not Reportable 01/28/22 05:51 Hem Pathologist Commnt No 01/28/22 05:51 Sodium 137 mmol/L (137-145) 01/29/22 05:22 Potassium 3.0 mmol/L (3.6-5.0) L 01/29/22 05:22 Chloride 93.7 mmol/L (98-107) L 01/29/22 05:22 Carbon Dioxide 32 mmol/L (22-30) H D 01/29/22 05:22 Anion Gap 14 mmol/L 01/29/22 05:22 BUN 62 mg/dL (7-17) H 01/29/22 05:22 Creatinine 4.4 mg/dL (0.6-1.2) H 01/29/22 05:22 Estimated GFR 14 ml/min 01/29/22 05:22 BUN/Creatinine Ratio 14 % 01/29/22 05:22 Glucose 117 mg/dL (65-100) H 01/29/22 05:22 Lactic Acid 0.70 mmol/L (0.7-2.0) 01/27/22 09:23 Calcium 8.1 mg/dL (8.4-10.2) L 01/29/22 05:22 Magnesium 1.70 mg/dL (1.7-2.3) 01/29/22 05:22 Total Bilirubin 0.60 mg/dL (0.1-1.2) 01/28/22 05:51 AST 11 units/L (5-40) 01/28/22 05:51 ALT 17 units/L (7-56) 01/28/22 05:51 Alkaline Phosphatase 80 units/L (35-129) 01/28/22 05:51 Total Creatine Kinase 22 units/L (30-135) L 01/27/22 05:45 Total Protein 5.3 g/dL (6.3-8.2) L D 01/28/22 05:51 Albumin 3.3 g/dL (3.9-5) L 01/28/22 05:51 Albumin/Globulin Ratio 1.7 % 01/28/22 05:51 HCG, Qual Negative (Negative) 01/27/22 04:37 Urine Color Yellow (Yellow) 01/27/22 Unknown Urine Turbidity Clear (Clear) 01/27/22 Unknown Specific [place] (Man) 1.020 (1.003-1.030) 01/27/22 Unknown Ur Protein (Man) 1+ mg/dL (Negative) 01/27/22 Unknown Ur Ketones (Man) Negative (Negative) 01/27/22 Unknown Ur Nitrite (Man) Negative (Negative) 01/27/22 Unknown Ur Reducing Substances Not Reportable 01/27/22 Unknown Urine Bilirubin (Man) Negative (Negative) 01/27/22 Unknown Urine Ictotest Not Reportable 01/27/22 Unknown Leukocyte Esterase (Man) Negative (Negative) 01/27/22 Unknown Urine WBC (Auto) 13.0 /HPF (0.0-6.0) H 01/27/22 Unknown Urine RBC (Auto) 4.0 /HPF (0.0-6.0) 01/27/22 Unknown U Epithel Cells (Auto) 10.0 /HPF (0-13.0) 01/27/22 Unknown Urine Bacteria (Auto) 2+ /HPF (Negative) 01/27/22 Unknown Urine RBC (Manual) 4+ (Negative) 01/27/22 Unknown Urine Yeast (Budding) 1+ /HPF 01/27/22 Unknown Urine Eosinophils Rare eosinophil seen (None Seen) 01/27/22 17:45 Urine Creatinine 134.5 mg/dL (0.1-20.0) H 01/27/22 17:45 Protein/Creatinin Ratio 0.20 01/27/22 17:45 Urine Sodium 53 mmol/L 01/27/22 17:45 Urine Total Protein 27 mg/dL (5-11.8) H 01/27/22 17:45 Microbiology: Microbiology 01/27/22 Unknown Urine,Clean Catch Urine Culture - Preliminary Loving/IV: Voiding Method Toilet Active Medications - Current Medications Current Medications: Generic Name Dose Route Start Last Admin Trade Name Freq PRN Reason Stop Dose Admin Acetaminophen 650 mg 01/27/22 09:36 01/28/22 18:48 Acetaminophen 325 Mg Tab PO 650 mg Q4H PRN Administration Pain MILD(1-3)/Fever >100.5/WILKERSON Sodium Bicarbonate 150 meq/ 1,150 mls @ 125 mls/hr 01/27/22 12:00 01/29/22 01:17 Dextrose IV 125 mls/hr DIRECT LARISSA Administration Metronidazole 500 mg 01/27/22 14:00 01/29/22 05:06 Metronidazole 500 Mg Tab PO 500 mg Q8HR LARISSA Administration Protocol Ondansetron HCl 4 mg 01/27/22 09:36 01/29/22 08:05 Ondansetron 4 Mg/2 Ml Inj IV 4 mg Q8H PRN Administration Nausea And Vomiting Sodium Chloride 10 ml 01/27/22 10:00 01/29/22 09:08 Sodium Chloride 0.9% 10 Ml Flush Syringe IV 10 ml BID LARISSA Administration Sodium Chloride 10 ml 01/27/22 09:36 Sodium Chloride 0.9% 10 Ml Flush Syringe IV PRN PRN LINE FLUSH
[2022-01-29 11:34] LABS: Total Cells Counted 100
[2022-01-29 11:35] LABS: Platelet Estimate Consistent w Auto; RBC Morphology Normal
--- NOTE | 2022-01-29 12:38 | Progress Note ---
Assessment and Plan Assessment: Acute gastroenteritis Urinary Tract Infection Acute kidney injury Metabolic acidosis Hypertension Nonobstructing nephrolithiasis Plan: Renal labs reviewed. 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 Vora Subjective Date of service: 01/29/22 Principal diagnosis: ARF Interval history: Patient seen sitting up in bed talking to father on cell phone. Reviewed renal labs. Objective - Vital Signs Vital signs: Vital Signs - 12hr 01/29/22 01/29/22 01/29/22 02:00 03:58 10:07 Temperature 98.8 F Pulse Rate 62 Respiratory 17 16 Rate Blood Pressure 127/86 O2 Sat by Pulse 100 99 99 Oximetry 01/29/22 10:55 Temperature 99.1 F Pulse Rate 58 L Respiratory 18 Rate Blood Pressure 132/96 O2 Sat by Pulse 99 Oximetry - General Appearance General appearance: well-developed, appears stated age EENT: ATNC, PERRL, hearing intact, vision intact Neck: no JVD, supple Respiratory: Present: Decreased Breath Sounds Cardiology: S1S2 Gastrointestinal: normoactive bowel sounds Integumentary: warm and dry Neurologic: alert and oriented x3 Musculoskeletal: other (No edema) Psychiatric: cooperative - Lab 01/29/22 05:22 01/29/22 05:22 Most recent lab results Calcium 8.1 mg/dL (8.4-10.2) L 01/29/22 05:22 Magnesium 1.70 mg/dL (1.7-2.3) 01/29/22 05:22 Urine Creatinine 134.5 mg/dL (0.1-20.0) H 01/27/22 17:45 Urine Sodium 53 mmol/L 01/27/22 17:45 Urine Total Protein 27 mg/dL (5-11.8) H 01/27/22 17:45 Medications & Allergies - Medications Allergies/Adverse Reactions: Allergies No Known Allergies Allergy (Verified 01/27/22 09:39) Home Medications: Home Medications Medication Instructions Recorded Confirmed Last Taken Type Hydrocortisone/Lidocaine/Aloe 1 each RC Q12H #1 kit 10/06/15 01/28/22 Unknown Rx [Lidocaine-Hc 3-2.5% Gel Kit] bisacodyL [Dulcolax] 5 mg PO DAILY PRN #30 tab 10/06/15 01/28/22 Unknown Rx Ibuprofen [Motrin] 600 mg PO Q6H PRN 01/28/22 01/28/22 Unknown History Labetalol HCl [Labetalol 300mg TAB] 300 mg PO Q8H 01/28/22 01/28/22 Unknown History NIFEdipine [Nifedipine ER] 30 mg PO DAILY 01/28/22 01/28/22 Unknown History Multivitamin Tablet 1 tab PO DAILY 01/28/22 01/28/22 Unknown History Active Medications: Generic Name Dose Route Start Last Admin Trade Name Freq PRN Reason Stop Dose Admin Acetaminophen 650 mg 01/27/22 09:36 01/28/22 18:48 Acetaminophen 325 Mg Tab PO 650 mg Q4H PRN Administration Pain MILD(1-3)/Fever >100.5/WILKERSON Sodium Bicarbonate 150 meq/ 1,150 mls @ 125 mls/hr 01/27/22 12:00 01/29/22 01:17 Dextrose IV 125 mls/hr DIRECT LARISSA Administration Metronidazole 500 mg 01/27/22 14:00 01/29/22 05:06 Metronidazole 500 Mg Tab PO 02/03/22 06:01 500 mg Q8HR LARISSA Administration Protocol Ondansetron HCl 4 mg 01/27/22 09:36 01/29/22 08:05 Ondansetron 4 Mg/2 Ml Inj IV 4 mg Q8H PRN Administration Nausea And Vomiting Sodium Chloride 10 ml 01/27/22 10:00 01/29/22 09:08 Sodium Chloride 0.9% 10 Ml Flush Syringe IV 10 ml BID LARISSA Administration Sodium Chloride 10 ml 01/27/22 09:36 Sodium Chloride 0.9% 10 Ml Flush Syringe IV PRN PRN LINE FLUSH
[2022-01-29] MEDS ORDERED: POTASSIUM CHLORIDE ER 10 MEQ TAB PO NR (14:00)
[2022-01-29] MEDS: SODIUM CHLORIDE 0.9% 1000 ML 1,000 ML IV SCH (14:11)
[2022-01-30] MEDS: SODIUM CHLORIDE 0.9% 1000 ML 1,000 ML IV SCH (02:59)
[2022-01-30] MEDS: metroNIDAZOLE 500 MG TAB PO SCH ×3 (06:19→22:47)
[2022-01-30 06:41] LABS: Calcium 8.5 mg/dL (8.4-10.2)
[2022-01-30] MEDS: ONDANSETRON 4 MG/2 ML INJ IV PRN (06:47)
[2022-01-30] MEDS: POTASSIUM CHLORIDE ER 20 MEQ TAB PO SCH ×2 (09:37→13:10)
--- NOTE | 2022-01-30 11:37 | Progress Note ---
Assessment and Plan Assessment: Acute gastroenteritis Urinary Tract Infection Acute kidney injury Metabolic acidosis Hypertension Nonobstructing nephrolithiasis Plan: Renal labs reviewed. 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 Vora Subjective Date of service: 01/30/22 Principal diagnosis: ARF Interval history: Patient seen lying in bed. Reviewed renal labs. Objective - Vital Signs Vital signs: Vital Signs - 12hr 01/30/22 01/30/22 05:02 09:38 Temperature 98.6 F Pulse Rate 65 Respiratory 18 Rate Blood Pressure 157/97 O2 Sat by Pulse 96 99 Oximetry - General Appearance General appearance: well-developed, appears stated age EENT: ATNC, PERRL, hearing intact, vision intact Neck: no JVD, supple Respiratory: Present: Decreased Breath Sounds Cardiology: S1S2 Gastrointestinal: normoactive bowel sounds Integumentary: warm and dry Neurologic: alert and oriented x3 Musculoskeletal: other (No edema) - Lab 01/29/22 05:22 01/30/22 06:02 Most recent lab results Calcium 8.5 mg/dL (8.4-10.2) 01/30/22 06:02 Magnesium 1.70 mg/dL (1.7-2.3) 01/29/22 05:22 Urine Creatinine 134.5 mg/dL (0.1-20.0) H 01/27/22 17:45 Urine Sodium 53 mmol/L 01/27/22 17:45 Urine Total Protein 27 mg/dL (5-11.8) H 01/27/22 17:45 Medications & Allergies - Medications Allergies/Adverse Reactions: Allergies No Known Allergies Allergy (Verified 01/27/22 09:39) Home Medications: Home Medications Medication Instructions Recorded Confirmed Last Taken Type Hydrocortisone/Lidocaine/Aloe 1 each RC Q12H #1 kit 10/06/15 01/28/22 Unknown Rx [Lidocaine-Hc 3-2.5% Gel Kit] bisacodyL [Dulcolax] 5 mg PO DAILY PRN #30 tab 10/06/15 01/28/22 Unknown Rx Ibuprofen [Motrin] 600 mg PO Q6H PRN 01/28/22 01/28/22 Unknown History Labetalol HCl [Labetalol 300mg TAB] 300 mg PO Q8H 01/28/22 01/28/22 Unknown History NIFEdipine [Nifedipine ER] 30 mg PO DAILY 01/28/22 01/28/22 Unknown History Multivitamin Tablet 1 tab PO DAILY 01/28/22 01/28/22 Unknown History Active Medications: Generic Name Dose Route Start Last Admin Trade Name Freq PRN Reason Stop Dose Admin Acetaminophen 650 mg 01/27/22 09:36 01/28/22 18:48 Acetaminophen 325 Mg Tab PO 650 mg Q4H PRN Administration Pain MILD(1-3)/Fever >100.5/WILKERSON Sodium Chloride 1,000 mls @ 100 mls/hr 01/29/22 13:00 01/30/22 02:59 Nacl 0.9% 1000 Ml IV 100 mls/hr DIRECT LARISSA Administration Metronidazole 500 mg 01/27/22 14:00 01/30/22 06:19 Metronidazole 500 Mg Tab PO 02/03/22 06:01 500 mg Q8HR LARISSA Administration Protocol Ondansetron HCl 4 mg 01/27/22 09:36 01/30/22 06:47 Ondansetron 4 Mg/2 Ml Inj IV 4 mg Q8H PRN Administration Nausea And Vomiting Potassium Chloride 40 meq 01/30/22 09:00 01/30/22 09:37 Potassium Chloride Er 20 Meq Tab PO 01/30/22 13:01 40 meq Q4H LARISSA Administration Sodium Chloride 10 ml 01/27/22 10:00 01/30/22 09:37 Sodium Chloride 0.9% 10 Ml Flush Syringe IV 10 ml BID LARISSA Administration Sodium Chloride 10 ml 01/27/22 09:36 Sodium Chloride 0.9% 10 Ml Flush Syringe IV PRN PRN LINE FLUSH
[2022-01-30] MEDS ORDERED: SODIUM CHLORIDE 0.45% 1000 ML 1,000 ML IV SCH (12:00)
--- NOTE | 2022-01-30 12:40 | Progress Note ---
Assessment and Plan Assessment and plan: 31-year-old female with past medical history of hypertension coming to our facility with complaint of acute abdominal pain, nausea, vomiting, diarrhea of 1 week duration. Patient states that her symptom onset was last Saturday when she was at her father's home for a cookout. Patient states that after this cookout she and her had been feeling unwell. Her was hospitalized yesterday and subsequently discharged for similar symptoms. Per the patient, approximately 11 people were sick as a result of suspected food poisoning from this gathering. Patient states that she has been having severe lower abdominal cramping as well as poor appetite since this republican. She was admitted for MICHELE and acute gastroenteritis. She is currently clincally improving with downtrending creatinine. Anticipated discharge tomorrow. Hospital Course: 01/28: Mild improvement in renal function. Nephrology fluid orders noted, continue D5-bicarb IV. Low potassium, replaced with IV and oral K. Good urine output per history and I/O review. Continue strict monitoring of I/O. 01/29: Renal fx continues to improve. Cr: 4.4. Potassium remains low, will continue to replace. Discussion with Dr. Castro, will continue to monitor. D/c rocephin, denies fevers, chills, urinary symptoms. continue flagyl for total of 7 day therapy for gastroenteritis 01/30: patient continues to clinically improve. K remains low, SCr is improving. Assessment and Plan #Acute gastroenteritis - N/V, diarreha, abd cramping - several members of family with comparable illness some requiring ED visits - stool cx and c. diff ordered - Aggressive IVF hydration - zofran prn for nausea. - Flagyl x 7 days - CLD if patient tolerate #Urinary Tract Infection (resolved) - slight elevation of urine WBC: 13 - urine culture - Rocephin IV discontinued #Acute kidney injury with vasomotor nephropathy-improving #Hypokalemia - etiology likely dehydration from gastroenteritis. renal stone ID on ctap is nonobstructing, no hydronephrosis visualized, doubt this is causative factor. - Cr: 11.2 -> 2.3 - aggressive IVF resuscitation - strict I/O, track urine output. - avoid nephrotoxins - electrolyte replacement prn - nephrology following - trend on serial bmp #Hypertension - normotensive on admission - home meds: labetalol 200 mg po bid and procardia 30 mg po daily - hold home meds for now #Nonobstructing nephrolithiasis - CTAP 2mm obstructive stone, no hydronephrosis noted #Advance care planning Disease education conducted, care plan discussed, diagnoses discussed, prognosis discussed, patient is full code, patient acknowledges understanding and agree with care plan, +30 minutes. History Interval history: No acute events overnight. Per patient she experienced some nausea in the morning, but denies vomiting, abdominal pain and worsening diarrhea. Her diarrhea is becoming less frequent. She is a good about current care goals he has no complaints at this time. Hospitalist Physical - Physical exam Narrative exam: GENERAL: Well-developed well-nourished. In no acute distress. HEENT: Normocephalic. Atraumatic. NECK: Supple. CHEST/LUNGS: CTAB on room air HEART/CARDIOVASCULAR: RRR. No murmur, rubs or gallops appreciated. ABDOMEN: +BS. NT/ND. SKIN: No rashes noted. NEURO: No focal motor deficit. Follows all commands. MUSCULOSKELETAL: No joint effusion EXTREMITIES: No cyanosis, clubbing or edema. PSYCH: Cooperative. - Constitutional Vitals: Temp Pulse Resp BP Pulse Ox 98.6 F 65 18 157/97 99 01/30/22 05:02 01/30/22 05:02 01/30/22 05:02 01/30/22 05:02 01/30/22 09:38 Results - Labs CBC & Chem 7: 01/29/22 05:22 01/30/22 06:02 Labs: Laboratory Last Values WBC 3.9 K/mm3 (4.5-11.0) L 01/29/22 05:22 RBC 3.53 M/mm3 (3.65-5.03) L 01/29/22 05:22 Hgb 10.4 gm/dl (10.1-14.3) 01/29/22 05:22 Hct 29.7 % (30.3-42.9) L 01/29/22 05:22 MCV 84 fl (79-97) 01/29/22 05:22 MCH 30 pg (28-32) 01/29/22 05:22 MCHC 35 % (30-34) H 01/29/22 05:22 RDW 13.5 % (13.2-15.2) 01/29/22 05:22 Plt Count 299 K/mm3 (140-440) 01/29/22 05:22 Banner % (Auto) Cis Coordinator 01/29/22 05:22 Add Manual Diff Complete 01/29/22 05:22 Total Counted 100 01/29/22 05:22 Seg Neuts % (Manual) 69.0 % (40.0-70.0) 01/29/22 05:22 Band Neutrophils % 0 % 01/29/22 05:22 Lymphocytes % (Manual) 16.0 % (13.4-35.0) 01/29/22 05:22 Reactive Lymphs % (Man) 0 % 01/29/22 05:22 Monocytes % (Manual) 12.0 % (0.0-7.3) H 01/29/22 05:22 Eosinophils % (Manual) 2.0 % (0.0-4.3) 01/29/22 05:22 Basophils % (Manual) 1.0 % (0.0-1.8) 01/29/22 05:22 Metamyelocytes % 0 % 01/29/22 05:22 Myelocytes % 0 % 01/29/22 05:22 Promyelocytes % 0 % 01/29/22 05:22 Blast Cells % 0 % 01/29/22 05:22 Nucleated RBC % Not Reportable 01/29/22 05:22 Seg Neutrophils # Man 2.7 K/mm3 (1.8-7.7) 01/29/22 05:22 Band Neutrophils # 0.0 K/mm3 01/29/22 05:22 Lymphocytes # (Manual) 0.6 K/mm3 (1.2-5.4) L 01/29/22 05:22 Abs React Lymphs (Man) 0.0 K/mm3 01/29/22 05:22 Monocytes # (Manual) 0.5 K/mm3 (0.0-0.8) 01/29/22 05:22 Eosinophils # (Manual) 0.1 K/mm3 (0.0-0.4) 01/29/22 05:22 Basophils # (Manual) 0.0 K/mm3 (0.0-0.1) 01/29/22 05:22 Metamyelocytes # 0.0 K/mm3 01/29/22 05:22 Myelocytes # 0.0 K/mm3 01/29/22 05:22 Promyelocytes # 0.0 K/mm3 01/29/22 05:22 Blast Cells # 0.0 K/mm3 01/29/22 05:22 WBC Morphology Not Reportable 01/29/22 05:22 Hypersegmented Neuts Not Reportable 01/29/22 05:22 Hyposegmented Neuts Not Reportable 01/29/22 05:22 Hypogranular Neuts Not Reportable 01/29/22 05:22 Smudge Cells Not Reportable 01/29/22 05:22 Toxic Granulation Not Reportable 01/29/22 05:22 Toxic Vacuolation Not Reportable 01/29/22 05:22 Dohle Bodies Not Reportable 01/29/22 05:22 Pelger-Huet Anomaly Not Reportable 01/29/22 05:22 Michael Rods Not Reportable 01/29/22 05:22 Platelet Estimate Consistent w auto 01/29/22 05:22 Clumped Platelets Not Reportable 01/29/22 05:22 Plt Clumps, EDTA Not Reportable 01/29/22 05:22 Large Platelets Not Reportable 01/29/22 05:22 Giant Platelets Not Reportable 01/29/22 05:22 Platelet Satelliting Not Reportable 01/29/22 05:22 Plt Morphology Comment Not Reportable 01/29/22 05:22 RBC Morphology Normal 01/29/22 05:22 Dimorphic RBCs Not Reportable 01/29/22 05:22 Polychromasia Not Reportable 01/29/22 05:22 Hypochromasia Not Reportable 01/29/22 05:22 Poikilocytosis Not Reportable 01/29/22 05:22 Anisocytosis Not Reportable 01/29/22 05:22 Microcytosis Not Reportable 01/29/22 05:22 Macrocytosis Not Reportable 01/29/22 05:22 Spherocytes Not Reportable 01/29/22 05:22 Pappenheimer Bodies Not Reportable 01/29/22 05:22 Sickle Cells Not Reportable 01/29/22 05:22 Target Cells Not Reportable 01/29/22 05:22 Tear Drop Cells Not Reportable 01/29/22 05:22 Ovalocytes Not Reportable 01/29/22 05:22 Helmet Cells Not Reportable 01/29/22 05:22 Reeder-Brentwood Bodies Not Reportable 01/29/22 05:22 Sheldon Rings Not Reportable 01/29/22 05:22 Graham Cells Not Reportable 01/29/22 05:22 Bite Cells Not Reportable 01/29/22 05:22 Crenated Cell Not Reportable 01/29/22 05:22 Elliptocytes Not Reportable 01/29/22 05:22 Acanthocytes (Spur) Not Reportable 01/29/22 05:22 Rouleaux Not Reportable 01/29/22 05:22 Hemoglobin C Crystals Not Reportable 01/29/22 05:22 Schistocytes Not Reportable 01/29/22 05:22 Malaria parasites Not Reportable 01/29/22 05:22 Amando Bodies Not Reportable 01/29/22 05:22 Hem Pathologist Commnt No 01/29/22 05:22 Sodium 146 mmol/L (137-145) H D 01/30/22 06:02 Potassium 3.0 mmol/L (3.6-5.0) L 01/30/22 06:02 Chloride 101.2 mmol/L (98-107) 01/30/22 06:02 Carbon Dioxide 34 mmol/L (22-30) H 01/30/22 06:02 Anion Gap 14 mmol/L 01/30/22 06:02 BUN 33 mg/dL (7-17) H 01/30/22 06:02 Creatinine 2.3 mg/dL (0.6-1.2) H 01/30/22 06:02 Estimated GFR 30 ml/min 01/30/22 06:02 BUN/Creatinine Ratio 14 % 01/30/22 06:02 Glucose 103 mg/dL (65-100) H 01/30/22 06:02 Lactic Acid 0.70 mmol/L (0.7-2.0) 01/27/22 09:23 Calcium 8.5 mg/dL (8.4-10.2) 01/30/22 06:02 Magnesium 1.70 mg/dL (1.7-2.3) 01/29/22 05:22 Total Bilirubin 0.60 mg/dL (0.1-1.2) 01/28/22 05:51 AST 11 units/L (5-40) 01/28/22 05:51 ALT 17 units/L (7-56) 01/28/22 05:51 Alkaline Phosphatase 80 units/L (35-129) 01/28/22 05:51 Total Creatine Kinase 22 units/L (30-135) L 01/27/22 05:45 Total Protein 5.3 g/dL (6.3-8.2) L D 01/28/22 05:51 Albumin 3.3 g/dL (3.9-5) L 01/28/22 05:51 Albumin/Globulin Ratio 1.7 % 01/28/22 05:51 HCG, Qual Negative (Negative) 01/27/22 04:37 Urine Color Yellow (Yellow) 01/27/22 Unknown Urine Turbidity Clear (Clear) 01/27/22 Unknown Specific Zeigler (Man) 1.020 (1.003-1.030) 01/27/22 Unknown Ur Protein (Man) 1+ mg/dL (Negative) 01/27/22 Unknown Ur Ketones (Man) Negative (Negative) 01/27/22 Unknown Ur Nitrite (Man) Negative (Negative) 01/27/22 Unknown Ur Reducing Substances Not Reportable 01/27/22 Unknown Urine Bilirubin (Man) Negative (Negative) 01/27/22 Unknown Urine Ictotest Not Reportable 01/27/22 Unknown Leukocyte Esterase (Man) Negative (Negative) 01/27/22 Unknown Urine WBC (Auto) 13.0 /HPF (0.0-6.0) H 01/27/22 Unknown Urine RBC (Auto) 4.0 /HPF (0.0-6.0) 01/27/22 Unknown U Epithel Cells (Auto) 10.0 /HPF (0-13.0) 01/27/22 Unknown Urine Bacteria (Auto) 2+ /HPF (Negative) 01/27/22 Unknown Urine RBC (Manual) 4+ (Negative) 01/27/22 Unknown Urine Yeast (Budding) 1+ /HPF 01/27/22 Unknown Urine Eosinophils Rare eosinophil seen (None Seen) 01/27/22 17:45 Urine Creatinine 134.5 mg/dL (0.1-20.0) H 01/27/22 17:45 Protein/Creatinin Ratio 0.20 01/27/22 17:45 Urine Sodium 53 mmol/L 01/27/22 17:45 Urine Total Protein 27 mg/dL (5-11.8) H 01/27/22 17:45 Microbiology: Microbiology 01/27/22 Unknown Urine,Clean Catch Urine Culture - Final Loving/IV: Voiding Method Toilet Active Medications - Current Medications Current Medications: Generic Name Dose Route Start Last Admin Trade Name Freq PRN Reason Stop Dose Admin Acetaminophen 650 mg 01/27/22 09:36 01/28/22 18:48 Acetaminophen 325 Mg Tab PO 650 mg Q4H PRN Administration Pain MILD(1-3)/Fever >100.5/WILKERSON Sodium Chloride 1,000 mls @ 75 mls/hr 01/30/22 12:00 Nacl 0.45% 1000 Ml IV DIRECT LARISSA Metronidazole 500 mg 01/27/22 14:00 01/30/22 06:19 Metronidazole 500 Mg Tab PO 02/03/22 06:01 500 mg Q8HR LARISSA Administration Protocol Ondansetron HCl 4 mg 01/27/22 09:36 01/30/22 06:47 Ondansetron 4 Mg/2 Ml Inj IV 4 mg Q8H PRN Administration Nausea And Vomiting Potassium Chloride 40 meq 01/30/22 09:00 01/30/22 09:37 Potassium Chloride Er 20 Meq Tab PO 01/30/22 13:01 40 meq Q4H LARISSA Administration Sodium Chloride 10 ml 01/27/22 10:00 01/30/22 09:37 Sodium Chloride 0.9% 10 Ml Flush Syringe IV 10 ml BID LARISSA Administration Sodium Chloride 10 ml 01/27/22 09:36 Sodium Chloride 0.9% 10 Ml Flush Syringe IV PRN PRN LINE FLUSH
[2022-01-30 23:29] VITALS: BP 171/108
[2022-01-30] MEDS ORDERED: hydrALAZINE 20 MG/1 ML INJ IV ONE (23:35)
[2022-01-31] MEDS: metroNIDAZOLE 500 MG TAB PO SCH ×2 (04:49→05:04)
[2022-01-31] MEDS: ACETAMINOPHEN 325 MG TAB PO PRN (06:31)
[2022-01-31] MEDS: ONDANSETRON 4 MG/2 ML INJ IV PRN (06:32)
[2022-01-31 06:34] LABS: Calcium 8.3 mg/dL (8.4-10.2)
--- NOTE | 2022-01-31 08:01 | Discharge Summary ---
Providers - Providers Date of Admission: 01/27/22 09:36 Date of discharge: 01/31/22 Attending physician: DARRELL CALDERON MD 01/27/22 09:35 Consult to Physician [CONS] Routine Comment: Consulting Provider: BRITTANY SMITH Physician Instructions: Reason For Exam: MICHELE Primary care physician: JUAN BRANTLEY Hospitalization Reason for admission: MICHELE, gastroenteritis Condition: Stable Hospital course: 31-year-old female with history of hypertension who presented with acute abdominal pain nausea, vomiting and diarrhea x1 week. She was admitted for acute gastroenteritis and was found to have a severe MICHELE with creatinine of 11.2. She was started empirically on Rocephin and Flagyl. CT of the abdomen pelvis showed nonobstructing calculus in the left kidney and no other findings. IV fluids were started and nephrology was consulted. After fluid resuscitation the patient's creatinine significantly improved without other invasive measures. Once clinically stable she was discharged home. Disposition: 01 HOME / SELF CARE / HOMELESS Final Discharge Diagnosis (Prints w/discharge instructions): Acute gastroenteritis. Acute kidney injury secondary to vasomotor nephropathy. Acute cystitis without hematuria. Hypokalemia. Hypertension. Nonobstructing nephrolithiasis Time spent for discharge: 30 minutes Core Measure Documentation - Palliative Care Palliative Care/ Comfort Measures: Not Applicable - Core Measures Any of the following diagnoses?: none Exam - Physical Exam Narrative exam: GENERAL: Well-developed well-nourished. In no acute distress. HEENT: Normocephalic. Atraumatic. NECK: Supple. CHEST/LUNGS: CTAB on room air HEART/CARDIOVASCULAR: RRR. No murmur, rubs or gallops appreciated. ABDOMEN: +BS. NT/ND. SKIN: No rashes noted. NEURO: No focal motor deficit. Follows all commands. MUSCULOSKELETAL: No joint effusion EXTREMITIES: No cyanosis, clubbing or edema. PSYCH: Cooperative. - Constitutional Vitals: Temp Pulse Resp BP Pulse Ox 97.4 F L 61 18 171/108 98 01/30/22 22:29 01/30/22 22:29 01/30/22 22:29 01/30/22 22:29 01/30/22 22:29 Plan Care Plan Goals: Please follow-up with your primary care provider within the next week for lab work. Please asked them to check your creatinine level. Continue to keep yourself fully hydrated with water. Please follow-up with the kidney doctor within 1 week. Follow up with: JUAN BRANTLEY MD [Primary Care Provider] - 3-5 Days PATRICK SMITH MD [Staff Physician] - 7 Days Prescriptions: metroNIDAZOLE [Flagyl TAB] 500 mg PO Q8HR 3 Days #9 tablet
[2022-01-31] MEDS ORDERED: NIFEdipine XL 30 MG TAB PO SCH (08:30)
[2022-01-31] MEDS ORDERED: NIFEDIPINE 30 MG PO SCH (10:00)
== END 2022-01-31 11:30 | disposition home or self-care (01) | DRG 391 ==
LOC: ED 17:11 → 3A 01-27 09:36
PROVIDERS: ADMIT Internal Medicine; ATTEND Student in an Organized Health Care Education/Training Program
DX: K52.9 Noninfective gastroenteritis and colitis, unspecified (principal); N17.0 Acute kidney failure with tubular necrosis; E87.2 Acidosis; E87.6 Hypokalemia; I10 Essential (primary) hypertension; N20.0 Calculus of kidney; N30.00 Acute cystitis without hematuria
CPT/HCPCS: 36415; 71045; 74176; 80048; 80053; 81001; 82140; 82550; 82570; 83735; 84132; 84156; 84300; 84703; 85007; 85014; 85018; 85025; 87086; 89050; 96374; 99285; G0378; J3490; J0360; J0696; J2405; J3480; J7030; J7070